=== PATIENT | female | born 1985 | race Caucasian/White ===

== ENCOUNTER 2023-02-11 08:27 | Emergency (ER) | payer BC ==
[~2023-02-11] VITALS: Ht 172.7 cm; Wt 86.6 kg
[2023-02-11] MEDS ORDERED: predniSONE 20 mg tablet PO ONE (09:25)
[2023-02-11 09:29] VITALS: TEMP 98.3
[2023-02-11] MEDS ORDERED: PRED10TA PO (09:35)
[2023-02-11 10:34] VITALS: BP 144/95; PULSE 78; RESP 16; O2SAT 99
== END 2023-02-11 10:36 | disposition home or self-care (01) ==
LOC: ER 08:27
DX: T78.49XA Other allergy, initial encounter (principal); F17.200 Nicotine dependence, unspecified, uncomplicated
CPT/HCPCS: 99283; J7512